=== PATIENT | male | born 1940 | race Caucasian/White ===

== ENCOUNTER 2016-08-27 08:37 | Day surgery (SDC) | payer MEDICARE, OTHER ==
[2016-08-27] VITALS (10 sets, daily range): BP systolic 130–177; BP diastolic 75–93; PULSE 55–85; RESP 14–17; O2SAT 96–98
[~2016-08-27] VITALS: Ht 170.2 cm; Wt 83.9 kg
--- NOTE | 2016-08-27 08:00 | PCM.HPANE ---
Patient Data Surgeon Admitting Provider: Attending Provider:Moose Mccormick MD Primary Care Physician:Peewee Hair MD Other Provider:Leonie Hernandezingham Anesthesia Reason for Visit Bile Duct Leak Ht/WT & BMI Body Mass Index Allergies Coded Allergies: nitroglycerin (Verified Allergy, Severe, EXTREME LOSS OF BP, 07/30/16) Past Anesthesia History Anesthesia History: Denies:: Abnormal Airway, Anesthesia Reactions, Difficult Intubation, Fam Anesthesia Reaction, Fam Malignant Hypertherm, Malignant Hyperthermia Diabetes History Hx Diabetes?: No MRSA MRSA: No Medications Blood Thinner: Aspirin Reported Medications Metoclopramide (Reglan)10 Mg [id number] Mg PO QID PRN For Nausea Ref 0 07/24/16 Omeprazole 20 Mg Capsule.dr40 Mg PO DAILY Ref 0 07/24/16 Losartan Potassium 50 Mg [id number] Mg PO DAILY 07/24/16 Doxazosin (Cardura)8 Mg Tablet8 Mg PO HS Ref 0 07/24/16 Aspirin 81 Mg Yuvowh28 Mg PO DAILY Ref 0 07/24/16 Discontinued Scripts Hydrocodone-Acetaminophen 5-325 mg 1 Each Tablet1-2 Tablet PO Q4H PRN For Pain # 14 TABLET Ref 0 Prov:oHrtencia Wong PA-C 07/31/16 History HEENT History: Denies:: Abnormal Airway Cataracts Difficult Intubation Dysphagia Hearing Problem Sinus Problem TMJ Hx of Heart Problems?: Yes Cardiovascular History: Positive for:: Hypertension Denies:: AICD Atrial Fibrillation Chest Pain Congestive Heart Failure Edema Heart Murmur Irregular Heartbeat Pacemaker Valvular Heart Disease Hx of Respiratory Problem?: Yes Respiratory History: Positive for:: Use of C-PAP Machine Denies:: Asthma COPD Cough Emphysema Hemoptysis Oxygen Administration Pneumonia Tuberculosis Hx Neurologic Problems?: Yes Neurological History: Positive for:: Dizziness (occasional vertigo) Denies:: CVA Headaches Multiple Sclerosis Parkinson's Disease Seizures Hx of GI Problems?: Yes Gastrointestinal History: Positive for:: Gastroesphageal Reflux Heartburn Denies:: Cirrhosis Diverticulitis Hiatal Hernia Rectal Bleeding Hx of Problems?: Yes Genitourinary History: Positive for:: Kidney Stones (needed lithotripsy for) Denies:: Urinary Tract Infection Male Hx: Positive for:: Prostate Problems (BPH) Skin History: Denies:: History Skin Disorders? Pressure Ulcers Hx Musculoskeletal Problems?: Yes Musculoskeletal History: Denies:: Back Injury (past hx of) Joint Replacement Musculoskeletal Trauma Hx of Psycho/Social Problems?: No Psycho Social History: Denies:: Anxiety Hx Depression Hx Surgeries?: Yes (kurt) Hx Any Other Health Problems?: Yes Other History: Positive for:: Cancer (pre cancerous) Denies:: Thyroid Disease History Blood Transfusions: Denies:: Blood Transfusions Hx Diabetes: No Hx Alcohol Use: Yes (wine/beer once in awhile)Hx Substance Use: No Smoking Status: Unknown if Ever Smoker Have You Smoked inLast 12 mo: No Stop/Bang Treated for Sleep Apnea?: Yes Do You Have a CPAP Machine?: Yes DESI Category 4 OutPt Procedure: Yes Risk Assessment Category Category 1A: Patient has history of documented sleep apnea, and HAS NOT received any narcotic, sedative or anesthesia administration during this stay. Category 1B: Patient has history of documented sleep apnea, and HAS received any narcotic , sedative or anesthesia administration during this stay Category 2: Patient has SUSPECTED Obstructive Sleep Apnea, and HAS received any narcotic , sedative or anesthesia administration during this stay. Category 3: Patient has SUSPECTED Obstructive Sleep Apnea and HAS NOT received narcotic, sedative or anesthesia administration during this stay. Category 4: Outpatient in Procedural Areas with known sleep apnea or who screen positive for High Risk via the STOP/BANG questionnaire. Exam Exam General Appearance: Alert, Oriented X3, Cooperative, No Acute Distress HEENT/AIRWAY: MP 2 Lungs: Clear to Auscultation, Normal Air Movement Heart: Exam Unremarkable, Regular Rate/Rhythm, No Murmurs/Rubs/Gallops Plan Impression Patient chart reviewed, patient interviewed and anesthestic plan with risks, benefits, and alternatives discussed, and informed consent obtained. NPO Status: SIP OF WATER W MEDS THIS MORNING ASA Physical Status: ASA2 Mod Systemic Disease Anesthetic Plan: GA Bene/Risks/Altern/Consents: Yes HP Complete Prior to Induction: Yes Mickie Perez MD Aug 27, 2016 08:00
[~2016-08-27 08:37] MED LIST: ASPI-973 PO; CAR8A PO; HYDR-4003 PO; LOSA50TA37 PO; Lactated Ringer's 1,000 ML IV ONE; METO-301 PO; OMEP20CA11 PO
[2016-08-27] MEDS ORDERED: Succinylcholine Chloride 20 mg/mL 5 mL Inj ONE (08:38)
[2016-08-27] MEDS ORDERED: fentaNYL-PF 50 mCg/mL 2 mL Inj ONE (08:38)
[2016-08-27] MEDS ORDERED: Rocuronium 10 mg/mL 5 mL Inj ONE (08:38)
[2016-08-27] MEDS ORDERED: Propofol 10,000 mCg/mL 20 mL Inj ONE (08:38)
[2016-08-27] MEDS ORDERED: Ondansetron 2 mg/mL 2 mL Inj ONE (08:38)
[2016-08-27] MEDS ORDERED: Dexamethasone 4 mg/mL Inj ONE (08:38)
[2016-08-27] MEDS ORDERED: Lactated Ringer's 500 ML IV PRN (10:48)
[2016-08-27] MEDS ORDERED: Lactated Ringer's 1,000 ML IV SCH (10:48)
--- NOTE | 2016-08-27 10:49 | PCM.ANEP1 ---
Post Anesthesia Phase 1 PACU Phase 1 Assessment Vital Signs Vital Signs Date Time Temp Pulse Resp B/P Pulse Ox O2 Delivery O2 Flow Rate FiO2 08/27/16 10:41 36.7 85 17 152/82 98 Simple Mask 8 08/27/16 09:16 36.8 55 17 130/77 97 Room Air Anesthetic Administered: GA Level of Alertness: Awake, talking FRIED's with Equal Strength: Yes Pain: No Nausea or Vomiting: No Oxygen Delivery: Simple Mask Lungs: Clear to Auscultation, Normal Air Movement Mickie Perez MD Aug 27, 2016 10:49
[2016-08-27] MEDS ORDERED: Labetalol 5 mg/mL 4 mL Inj IV PRN (10:50)
[2016-08-27] MEDS ORDERED: EPHEDrine Sulfate 50 mg/mL Inj IVPUSH PRN (10:50)
[2016-08-27] MEDS ORDERED: Atropine 0.4 mg/mL Inj IVPUSH PRN (10:50)
[2016-08-27] MEDS ORDERED: Dexamethasone 4 mg/mL Inj IVPUSH PRN (10:50)
[2016-08-27] MEDS ORDERED: MetoCLOpramide 5 mg/mL 2 mL Inj IVPUSH PRN (10:50)
[2016-08-27] MEDS ORDERED: Phenylephrine 10,000 mCg/mL Inj IVPUSH PRN (10:50)
[2016-08-27] MEDS ORDERED: hydrALAZINE 20 mg/mL Inj IVPUSH PRN (10:50)
[2016-08-27] MEDS ORDERED: HYDROmorphone 1 mg/mL Inj IVPUSH PRN (10:50)
[2016-08-27] MEDS ORDERED: fentaNYL-PF 50 mCg/mL 2 mL Inj IVPUSH PRN (10:50)
[2016-08-27] MEDS ORDERED: Ondansetron 2 mg/mL 2 mL Inj IVPUSH PRN (10:50)
[2016-08-27] MEDS ORDERED: Lactated Ringer's 1,000 ML IV ONE (11:09)
--- NOTE | 2016-08-27 11:17 | DRSVH ---
PROCEDURE: X-RAY E.R.C. BILIARY DUCTS ([id number]) INDICATIONS: BILE DUCT LEAK TECHNIQUE: Fluoroscopic spot films were acquired by the gastroenterology service during ERCP procedu re. COMPARISON: [facility], CR, XR ERC BILIARY DUCTS, 07/30/2016, 18:15. FINDINGS: 2 submitted images demonstrate partial opacification of the extra hepatic bile duct which a ppears grossly normal. No definite intraluminal filling defects are seen. No extravasation of contr ast media. Previously noted biliary endoprosthesis is no longer visible. IMPRESSION: Grossly normal appearance of the visualized bile ducts and the previously visualized bili jennifer endoprosthesis is no longer visible. Dictated by: Dequan Styles RRA Interpreted: Tosha Kang MD on 08/27/2016 at 11:17 Transcribed by: ASHWIN on 08/27/2016 at 11:17 Approved by: Tosha Kang M.D. on 08/27/2016 at 16:19
--- NOTE | 2016-08-27 11:17 | PCM.ANEP2 ---
Post Anesthesia Evaluation ASA/CMS Post Anesthesia VS in Patient's Normal Range?: Yes Resp Stable; Airway Patent?: Yes CV Function & Hydration Stable: Yes Mental Status Recovered?: Yes Pain control Satisfactory?: Yes N/V Control Satisfactory?: Yes Mickie Perez MD Aug 27, 2016 11:17
--- NOTE | 2016-08-27 11:53 | ENDO ---
[address] [address] ENDOSCOPY PROCEDURE PATIENT: MICHELLE DOCKERY : 1940 MR#: [id number] ADMIT: 08/27/2016 JOB ID: [id number] PRIMARY PROVIDER: Peewee Hair MD PROCEDURE: ERCP with biliary stent removal. INDICATIONS: A 75-year-old male with a bile leak. This was treated endoscopically by way of biliary sphincterotomy and stent insertion. His SOREN has been removed. He is not having any abdominal pain. He has had a minimal amount of seepage at the site of his SOREN drain, but this has not been clearly biliary. No sign of any residual leak. He reports today for stent removal and fluoroscopy. EQUIPMENT: Standard duodenoscope. SEDATION: General anesthesia with endotracheal intubation as performed at Dr. Mickie Perez. COMPLICATIONS: There were no perceived periprocedural complications. The patient did become bradycardic early on in the case and received a dose of IV atropine. He responded quite nicely. Blood pressure came up, pulse came up. PROCEDURE INFORMATION: After the risks and benefits were explained, written and verbal informed consent was obtained. The patient was put into the prone position following anesthesia and intubation. The scope was introduced into the mouth through the bite block, and advanced to the second portion of the duodenum. The previously placed plastic biliary endoprosthesis was easily seen and appeared to be in an appropriate position. This was grasped with the snare and removed by way of the accessory channel of the scope. I then used a 04/22 balloon contrast port stone extraction catheter preloaded with a straight 0.035 short Dreamwire. We fairly easily advanced the wire up into the more proximal biliary tree. Cholangiographic images did not disclose any evidence of retained stone or debris. Bile was seen easily flowing from the previously cut sphincterotomy. We swapped out the balloon for a 2nd one, as the original one had caused stripping all the way down to the balloon. The 2nd balloon was advanced over the wire and up in the duct. We inflated the balloon to approximately 7 or 8 mm (the duct was not dilated at all). We pursued occlusion cholangiography and did not identify any evidence of a leak. The duct was swept several times with the balloon and easily came through the sphincterotomy. I did not see any stones nor significant debris removed. At that point, we elected to terminate the procedure. The catheter and wire were retrieved. The scope was then brought back into the stomach. Excess air and fluid was removed. The scope was then withdrawn from the patient, who seemed to tolerate the procedure quite well. He was extubated and transferred to the PACU in stable condition. ENDOSCOPIC DIAGNOSES: 1. No persistent bile leak. 2. Successful removal of biliary stent. RECOMMENDATIONS: 1. NPO for four hours. 2. Clear liquids can be started at that point and diet can be advanced to his usual starting tomorrow morning. 3. Follow up in the GI Clinic on a p.r.n. basis. 4. Follow up in the Surgical Clinic as scheduled.
== END 2016-08-27 23:59 | disposition home or self-care (01) ==
LOC: END 08:37
PROVIDERS: ATTEND Internal Medicine Gastroenterology
DX: K83.8 Other specified diseases of biliary tract (principal); I10 Essential (primary) hypertension; Z79.82 Long term (current) use of aspirin
CPT/HCPCS: 43275; 74328; J0330; J1100; J2250; J2405; J7120; Q9967